=== PATIENT | female | born 1975 | race Caucasian/White ===

== ENCOUNTER 2017-02-21 10:44 | Emergency (ER) | payer OTHER ==
[2017-02-21 11:01] LABS: BASOPHIL 0.3 % (0-2); EOSINOPHIL 1.4 % (0-5); HCT 37.2 % (37.0-47.0); HGB 12.9 g/dl (12.5-16.0); LYMPHOCYTE 17.1 % (15-48); MCH 31.9 pg (25.0-31.0); MCHC 34.7 g/dL (32.0-36.0); MCV 92.1 fL (78.0-100.0); MONOCYTE 11.1 % (0-12); MPV 9.5 fL (6.0-9.5); NEUTROPHIL 70.1 % (41-80); PLT 196 K/uL (150-400); RBC 4.04 M/uL (4.20-5.40); RDW 12.8 % (11.5-14.0); WBC 3.7 K/uL (4.0-10.5)
[2017-02-21 11:20] LABS: ALBUMIN 4.3 g/dL (3.5-5.0); BILIRUBIN - TOTAL 0.2 mg/dL (0.1-1.0); GLOBULIN (CALCULATION) 2.7 g/dL (2.2-4.2); POTASSIUM 3.8 mmol/L (3.5-5.1)
== END 2017-02-21 12:26 | disposition home or self-care (01) ==
LOC: FER 10:44
PROVIDERS: Emergency Medicine
DX: R55 Syncope and collapse (principal); R05 Cough; I10 Essential (primary) hypertension; Z79.52 Long term (current) use of systemic steroids; Z79.899 Other long term (current) drug therapy
CPT/HCPCS: 36415; 71010; 80053; 84484; 85025; 93005